=== PATIENT | male | born 1980 | race Caucasian/White ===

== ENCOUNTER 2017-05-02 10:35 | Outpatient (CLI) | payer BC ==
--- NOTE | 2017-05-02 14:14 | XRAY Report ---
DATE OF SERVICE: 05/02/2017 TWO VIEW CHEST: 05/02/2017 CLINICAL INDICATION: Cough. FINDINGS: Frontal and lateral views of the chest demonstrate a normal cardiac silhouette. The lungs are clear. No effusion or pneumothorax is present. IMPRESSION: NORMAL CHEST. NO SIGNIFICANT INTERVAL CHANGE FROM 07/23/2013. TD: 05/02/2017 15:12
== END 2017-05-02 10:36 | disposition home or self-care (01) ==
LOC: DI 10:35
PROVIDERS: ATTEND Internal Medicine
DX: R05 Cough (principal)
CPT/HCPCS: 71046

== ENCOUNTER 2017-09-02 12:07 | Outpatient (CLI) | payer BC | END 2017-09-02 12:08 | disposition critical access hospital (66) | LOC: EMS 12:07 | PROVIDERS: ATTEND Surgery | DX: R07.9 Chest pain, unspecified (principal) | CPT/HCPCS: A0425; A0429 ==

== ENCOUNTER 2017-09-02 12:26 | Emergency (ER) | payer BC ==
--- NOTE | 2017-09-02 12:33 | ED Physician Documentation ---
History of Present Illness - Stated complaint Stated Complaint: CP - Additonal information Additional information: hx from pt 37 male HTN and HLD string fhx CAD in males non smoker no DM had echo and stress test in 2011 at [facility] reportedly normal to ED from PMD with several days of waxing and waning chest pressure comes and goes last about 1 hr at a time pressure to ant chest no radiation no soa diaphoresis nausea no ppt or relieving factors no fever cough no travel no leg swelling no pain upon arrival took asa [employer] Review of Systems Constitutional: denies: Fever, Chills, Sweats Cardiac: reports: Chest pain / pressure Respiratory: denies: Dyspnea, Cough GI: denies: Abdominal Pain, Nausea, Vomiting Musculoskeletal: denies: Back pain, Extremity swelling Neurologic: denies: Generalized weakness Endocrine: denies: Easy bruising / bleeding Immunocompromised: denies: Immunocompromised PD PAST MEDICAL HISTORY - Past Medical History Cardiovascular: Hypertension, High cholesterol - Past Surgical History Past Surgical History: Yes - Present Medications Home Medications: Ambulatory Orders Medication Instructions Recorded Confirmed Ezetimibe [Zetia] 10 mg PO QD 07/23/13 07/23/13 Metoprolol Succinate 09/02/17 Umeclidinium [place] [Incruse 09/02/17 Ellipta] - Allergies Allergies/Adverse Reactions: Allergies Allergy/AdvReac Type Severity Reaction Status Date / Time No Known Drug Allergies Allergy Verified 09/02/17 12:37 - Social History Does the pt smoke?: No Smoking Status: Never smoker Does the pt drink ETOH?: Yes Does the pt have substance abuse?: No - POLST Patient has POLST: No PD ED PE NORMAL - Vitals Vital signs reviewed: Yes - General General: Alert and oriented X 3 - HEENT HEENT: PERRL - Neck Neck: Supple, no meningeal sign - Cardiac Cardiac: RRR - Respiratory Respiratory: No respiratory distress, Clear bilaterally - Abdomen Abdomen: Soft, Non tender - Derm Derm: Normal color - Extremities Extremities: No deformity, No edema, No calf tenderness / cord - Neuro Neuro: Alert and oriented X 3 Results - Vitals Vitals: Vital Signs - 24 hr 09/02/17 09/02/17 09/02/17 12:30 12:44 13:49 Temperature 36.6 C Heart Rate 74 64 Respiratory 18 18 Rate Blood Pressure 136/72 H 117/66 Blood Pressure 118/76 [Left] Blood Pressure 122/74 [Right] O2 Saturation 98 99 09/02/17 09/02/17 15:20 17:16 Temperature Heart Rate 69 80 Respiratory 17 22 Rate Blood Pressure 114/74 136/79 H Blood Pressure [Left] Blood Pressure [Right] O2 Saturation 98 95 Oxygen O2 Source Room air - EKG (time done) 1233 Rate: Rate (enter#) (72) Rhythm: NSR Mcallen: Normal Intervals: Normal AL Ischemia: Q waves (prom in III small inAVF), Other (slight ST e;ev V2 V3 most suggestive of repol) - Labs Labs: Laboratory Tests 09/02/17 09/02/17 09/02/17 12:43 12:43 12:43 WBC 7.2 RBC 5.61 Hgb 14.9 Hct 44.0 MCV 78.5 L MCH 26.6 L MCHC 33.8 RDW 13.7 Plt Count 194 MPV 8.5 Neut # 4.4 Lymph # 2.1 Preston # 0.6 Eos # 0.1 Baso # 0.0 Absolute Nucleated RBC 0.00 Nucleated RBC % 0.1 Sodium 138 Potassium 4.1 Chloride 107 Carbon Dioxide 25 Anion Gap 6.0 BUN 16 Creatinine 1.0 Estimated GFR (MDRD) 84 L Glucose 107 H Calcium 9.2 Total Bilirubin 0.7 AST 27 ALT 39 Alkaline Phosphatase 55 Troponin I < 0.04 Total Protein 7.1 Albumin 4.1 Globulin 3.0 Albumin/Globulin Ratio 1.4 Lipase 25 09/02/17 14:13 WBC RBC Hgb Hct MCV MCH MCHC RDW Plt Count MPV Neut # Lymph # Preston # Eos # Baso # Absolute Nucleated RBC Nucleated RBC % Sodium Potassium Chloride Carbon Dioxide Anion Gap BUN Creatinine Estimated GFR (MDRD) Glucose Calcium Total Bilirubin AST ALT Alkaline Phosphatase Troponin I < 0.04 Total Protein Albumin Globulin Albumin/Globulin Ratio Lipase - Rads (name of study) CXR Radiology: See rad report (neg) PD MEDICAL DECISION MAKING - ED course ED course: 37 male many risk factors abn but likely not acute EKG trop neg PERc neg no pna pneumo enlarged aorta etc [facility] so cannot admit but trop neg after several days of waxing waning sx so doubt serial trops will be diff spoke to hospitalist who will do stress test for pt in an hr if + transfer if neg dc stress test was neg - will dc Departure - Departure Disposition: 01 Home, Self Care Clinical Impression: Chest pain Qualifiers: Chest pain type: unspecified Qualified Code(s): R07.9 - Chest pain, unspecified Condition: Good Instructions: ED Chest Pain Atypical Unkn Cause Follow-Up: Patel Torres MD [Primary Care Provider] - Comments: All your tests were fine. The EKG and blood tests and the stress test indicate this is not a new heart attack or angina Your history and exam do not suggest a blood clot in your lungs The xray did not show fluid around your heart or lungs, an aneurysm or tear of your aorta or any infection. So I am not sure why you have been having chest pains but given the extensive and reassuring work up in the ER, I think it is safe for you to go home. May take motrin and tylenol as needed for the pain. Please follow up with your PMD for a recheck on Tuesday
[2017-09-02 12:50] LABS: BASOPHILS % (AUTO) 0.7 %; EOSINOPHILS # (AUTO) 0.1 10^3/uL (0.0-0.7); EOSINOPHILS % (AUTO) 1.7 %; HGB - HEMOGLOBIN 14.9 g/dL (14.0-18.0); LYMPHOCYTES # (AUTO) 2.1 10^3/uL (1.5-3.5); LYMPHOCYTES % (AUTO) 28.7 %; MEAN CORPUSCULAR HEMOGLOBIN 26.6 pg (27.0-31.0); MEAN CORPUSCULAR HGB CONC 33.8 g/dL (32.0-36.0); MEAN CORPUSCULAR VOLUME 78.5 fL (80.0-94.0); MEAN PLATELET VOLUME 8.5 fL (7.4-11.4); MONOCYTES # (AUTO) 0.6 10^3/uL (0.0-1.0); MONOCYTES % (AUTO) 8.7 %; NEUTROPHILS # (AUTO) 4.4 10^3/uL (1.5-6.6); NEUTROPHILS % (AUTO) 60.2 %; PLT - PLATELET COUNT 194 10^3/uL (130-450); RED BLOOD COUNT 5.61 10^6/uL (4.70-6.10); RED CELL DISTRIBUTION WIDTH 13.7 % (12.0-15.0); WHITE BLOOD COUNT 7.2 x10^3/uL (4.8-10.8)
[2017-09-02 13:03] LABS: ALBUMIN 4.1 g/dL (3.2-5.5); ALBUMIN/GLOBULIN RATIO 1.4 (1.0-2.2); BILIRUBIN,TOTAL 0.7 mg/dL (0.2-1.0); CALCIUM 9.2 mg/dL (8.5-10.3); TOTAL PROTEIN 7.1 g/dL (6.7-8.2)
--- NOTE | 2017-09-02 13:38 | XRAY Preliminary Report ---
Exam: XR CHEST 2 VIEW X-RAY IMPRESSION: Normal 2-view chest radiography. [facility] SITE ID: [id number]
--- NOTE | 2017-09-02 13:43 | XRAY Report ---
EXAM: CHEST RADIOGRAPHY EXAM DATE: 09/02/2017 01:32 PM. CLINICAL HISTORY: Chest pain for 3 days. COMPARISON: 05/02/2017. TECHNIQUE: 2 views. FINDINGS: Lungs/Pleura: No focal opacities evident. No pleural effusion. No pneumothorax. Normal volumes. Mediastinum: Heart and mediastinal contours are unremarkable. Other: None. IMPRESSION: Normal 2-view chest radiography. [facility] Referring Provider Line: [phone] SITE ID: [id number]
[2017-09-02] MEDS ORDERED: REGADENOSON 0.4 MG/5 ML SYRINGE IVP ONE (15:40)
--- NOTE | 2017-09-02 18:21 | CARDIAC PROCEDURE NOTE ---
DATE OF SERVICE: 09/02/2017 Physician: Ronda Lowry MD LOCATION: Emergency room. This is a 37-year-old white male who presents to the emergency room with symptoms of chest pain. He has had 2 negative troponins done in the emergency room, EKG has been unremarkable, and he presents for pharmaceutical stress test. CORONARY RISK FACTORS: Hypertension, hyperlipidemia, overweight, family history of early heart disease. RESTING EKG: Normal sinus rhythm. Deep Q-wave is present in lead 3 and a small Q-wave in aVF, otherwise within normal limits. The patient underwent Lexiscan stress testing after signing informed consent. The patient's resting heart rate was 81, which increased to 109 at peak. Resting blood pressure 118/82, which increased to 170/80 at peak, in recovery 128/72. The patient did experience flushing and his typical chest pressure was reproduced, rated a 1/10. This resolved in under 1 minute spontaneously. EKG at peak showed no ischemic ST segment changes or T-wave changes. IMPRESSION: Unremarkable EKG during pharmaceutical stress testing. Nuclear images reported separately. TD: 09/02/2017 18:20
--- NOTE | 2017-09-02 18:56 | Nuclear Medicine Report ---
EXAM: SINGLE-ISOTOPE PHARMACOLOGICAL STRESS TEST WITH REGADENOSON. SINGLE-ISOTOPE AND ONE-DAY REST/STRESS M YOCARDIAL PERFUSION SCANS WITH TOMOGRAPHIC IMAGING, QUANTITATIVE ANALYSIS, WALL MOTION ANALYSIS AND C ALCULATION OF EJECTION FRACTION. EXAM DATE: 09/02/2017 06:06 PM. CLINICAL HISTORY: Chest pain. COMPARISON: None. TECHNIQUE: After the intravenous administration of 44.6 mCi of Tc-99m sestamibi, a rest myocardial perfusion sca n was done with tomography. Motion correction was applied when appropriate. After an appropriate delay, pharmacological stress was performed with the infusion of 0.4 mg regadeno son per protocol. According to protocol, 9.2 mCi of Tc-99m sestamibi was injected for stress myocardi al perfusion scan. Motion correction was applied when appropriate. Gated tomographic images were obtained for wall motion analysis and computation of left ventricular e jection fraction. FINDINGS: Stress perfusion images demonstrate normal radiotracer distribution without fixed or revers ible ischemia. No convincing evidence of transient ischemic dilatation. Wall motion analysis demonstrates normal wall motion without functional abnormality. The left ventricular end-diastolic volume is 148 cc. The left ventricular end-systolic volume is 50 c c. The left ventricular ejection fraction is calculated to be 66%. IMPRESSION: 1. No scintigraphic findings to indicate myocardial ischemia. Negative for infarct. 2. Left ventricular ejection fraction of 66%. 3. Normal segmental and global wall motion. 4. Normal left ventricular cavity size, no change with stress. [facility] The call report notification system was initiated by Dr. Daniela Shah at 18:41 hrs on 09/02/17. The above findings were discussed with Ronda Lowry by Dr. Daniela Shah at 18:44 hrs on 09/02/17 . Referring Provider Line: [phone] SITE ID: [id number]
[2017-09-02 19:15] VITALS: BP 124/78
== END 2017-09-02 19:15 | disposition home or self-care (01) ==
LOC: EDUNIT# → ED 12:26
DX: R07.9 Chest pain, unspecified (principal); I10 Essential (primary) hypertension; E78.00 Pure hypercholesterolemia, unspecified; Z82.49 Family history of ischemic heart disease and other diseases of the circulatory system
CPT/HCPCS: 36415; 71046; 78452; 80053; 83690; 84484; 85025; 93005; 93017; 99284; A9500; J2785

== ENCOUNTER 2018-10-15 23:39 | Emergency (ER) | payer BC ==
--- NOTE | 2018-10-16 00:44 | ED Physician Documentation ---
PD HPI ABD PAIN - Stated complaint Stated Complaint: ABD PX - Chief complaint Chief Complaint: Abd Pain - History obtained from History obtained from: Patient, Family - History of Present Illness Timing - onset: Today Timing - duration: Hours Timing - details: Abrupt onset, Now resolved Quality: Cramping, Sharp, Pain Location: RUQ, RLQ Radiation: , Right flank Improved by: Other (time) Worsened by: Other (nothing) Associated symptoms: No: Fever, Nausea, Vomiting, Diarrhea, Constipation, Dysuria, Hematuria, Chest pain, Dizzy Similar symptoms before: Has not had sx before Recently seen: Not recently seen - Additional information Additional information: Previously well 38-year-old male has developed pain in the right upper quadrant that has radiated into his groin and has resolved and recurred this evening. He is come to the emergency department after the second recurrence with severe pain and shortly after having his IV started his pain resolved. He is currently pain-free. Review of Systems Constitutional: denies: Fever Throat: denies: Sore throat Respiratory: denies: Dyspnea GI: reports: Abdominal Pain. denies: Nausea, Vomiting, Constipation, Diarrhea : denies: Dysuria, Frequency PD PAST MEDICAL HISTORY - Past Medical History Cardiovascular: Hypertension, High cholesterol - Past Surgical History Past Surgical History: Yes - Present Medications Home Medications: Ambulatory Orders Medication Instructions Recorded Confirmed Ezetimibe [Zetia] 10 mg PO QD 07/23/13 07/23/13 Metoprolol Succinate PO BID 09/02/17 - Allergies Allergies/Adverse Reactions: Allergies Allergy/AdvReac Type Severity Reaction Status Date / Time No Known Drug Allergies Allergy Verified 09/02/17 12:37 - Social History Does the pt smoke?: No Smoking Status: Never smoker Does the pt drink ETOH?: Yes ETOH Use: Beer Does the pt have substance abuse?: No - Immunizations Immunizations are current?: Yes - POLST Patient has POLST: No PD ED PE NORMAL - Vitals Vital signs reviewed: Yes (hypertensive ) - General General: Alert and oriented X 3, No acute distress, Well developed/nourished - HEENT HEENT: Atraumatic, PERRL, EOMI - Neck Neck: Supple, no meningeal sign, No bony TTP - Cardiac Cardiac: RRR, No murmur - Respiratory Respiratory: No respiratory distress - Abdomen Abdomen: Normal bowel sounds, Soft, Non tender, Non distended, No organomegaly - Back Back: No CVA TTP, No spinal TTP - Derm Derm: Normal color, Warm and dry, No rash - Extremities Extremities: No deformity, No edema, No calf tenderness / cord - Neuro Neuro: Alert and oriented X 3, 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, No motor deficit, No sensory deficit, Normal speech Eye Opening: Spontaneous Motor: Obeys Commands Verbal: Oriented GCS Score: 15 - Psych Psych: Normal mood, Normal affect Results - Vitals Vitals: Vital Signs - 24 hr 10/15/18 23:43 Temperature 36.3 C L Heart Rate 73 Respiratory 18 Rate Blood Pressure 145/84 H O2 Saturation 99 Oxygen O2 Source Room air - Labs Labs: Laboratory Tests 10/16/18 01:05 Urine Color YELLOW Urine Clarity CLEAR Urine pH 6.0 Ur Specific [place] 1.020 Urine Protein NEGATIVE Urine Glucose (UA) NEGATIVE Urine Ketones NEGATIVE Urine Occult Blood NEGATIVE Urine Nitrite NEGATIVE Urine Bilirubin NEGATIVE Urine Urobilinogen 0.2 (NORMAL) Ur Leukocyte Esterase NEGATIVE Ur Microscopic Review NOT INDICATED Urine Culture Comments NOT INDICATED Procedures - Bedside sono Bedside sono by EMP: With the use of bedside ultrasound the right kidney is imaged. It is sonographically nontender and there is no evidence of hydronephrosis. The right upper quadrant is imaged the gallbladder is present it is sonographically nontender and there are no obvious stones gallbladder wall thickening or pericholecystic fluid. PD MEDICAL DECISION MAKING - ED course Complexity details: reviewed results, re-evaluated patient, considered differential, d/w patient, d/w family ED course: 38-year-old male with nonmodifiable right sided abdominal pain that was severe has no specific findings on physical exam today and he has no blood in his urine. His history and course are still consistent with a passed kidney stone. I have indicated the patient we will give him some instructions on this and asked him to return to the emergency department should he develop severe symptoms. Departure - Departure Disposition: 01 Home, Self Care Clinical Impression: Ureterolithiasis Condition: Stable Instructions: ED Stone Renal Passed Follow-Up: Patel Torres MD [Primary Care Provider] -
[2018-10-16 01:15] LABS: BILIRUBIN,URINE NEGATIVE (NEGATIVE); GLUCOSE, URINE (UA) NEGATIVE (NEGATIVE); KETONES,URINE (UA) NEGATIVE (NEGATIVE); LEUKOCYTE ESTERASE, URINE NEGATIVE (NEGATIVE); NITRITE,URINE NEGATIVE (NEGATIVE); OCCULT BLOOD,URINE NEGATIVE (NEGATIVE); PROTEIN,URINE NEGATIVE (NEGATIVE); UROBILINOGEN,URINE 0.2 (NORMAL) E.U./dL (NORMAL)
[2018-10-16 01:16] LABS: CLARITY,URINE CLEAR (CLEAR)
[2018-10-16 01:53] VITALS: BP 138/86
== END 2018-10-16 02:00 | disposition home or self-care (01) ==
LOC: ED 23:39
DX: N20.1 Calculus of ureter (principal); I10 Essential (primary) hypertension
CPT/HCPCS: 80053; 81001; 81003; 83690; 85025; 87086; 99283

== ENCOUNTER 2021-09-05 12:11 | Outpatient (CLI) | payer BC ==
--- NOTE | 2021-09-05 13:29 | XRAY Report ---
PROCEDURE: Knee 3 View BILAT INDICATIONS: Pain in both knees TECHNIQUE: 3Views of each knee are obtained.. COMPARISON: None. FINDINGS: Bones: No fractures or dislocations. No suspicious bony lesions. Mild bilateral tricompartmental p eriarticular osteophyte formation. Chronic appearing fragmentation of the tibial tubercles bilaterall y. Soft tissues: No joint effusion. No suspicious soft tissue calcifications. IMPRESSION: 1. Osteoarthritis. 2. 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 3. No acute fracture. No osseous lesion. If symptoms and/or clinical suspicion for pathology continue , further assessment with repeat plain films, or advanced imaging (e.g., CT, MRI, or bone scan) is re commended for further assessment. Reviewed by: Darcy Novak MD on 09/05/2021 1:28 PM PDT Approved by: Darcy Novak MD on 09/05/2021 1:28 PM PDT Station ID: [id number]
== END 2021-09-05 12:12 | disposition home or self-care (01) ==
LOC: DI 12:11
PROVIDERS: ATTEND Internal Medicine
DX: M17.0 Bilateral primary osteoarthritis of knee (principal)

== ENCOUNTER 2023-08-25 11:57 | Emergency (ER) | payer BC, OTHER ==
[2023-08-25 12:34] LABS: BASOPHILS # (AUTO) 0.1 10^3/uL (0.0-0.1); BASOPHILS % (AUTO) 0.5 %; EOSINOPHILS # (AUTO) 0.2 10^3/uL (0.0-0.7); HCT - HEMATOCRIT 45.2 % (42.0-52.0); HGB - HEMOGLOBIN 14.2 g/dL (14.0-18.0); LYMPHOCYTES # (AUTO) 2.2 10^3/uL (1.5-3.5); LYMPHOCYTES % (AUTO) 18.7 %; MEAN CORPUSCULAR HEMOGLOBIN 24.8 pg (27.0-31.0); MEAN CORPUSCULAR HGB CONC 31.4 g/dL (32.0-36.0); MEAN CORPUSCULAR VOLUME 78.9 fL (80.0-94.0); MEAN PLATELET VOLUME 11.1 fL (7.4-11.4); MONOCYTES # (AUTO) 0.7 10^3/uL (0.0-1.0); MONOCYTES % (AUTO) 6.3 %; NEUTROPHILS # (AUTO) 8.4 10^3/uL (1.5-6.6); NEUTROPHILS % (AUTO) 72.2 %; PLT - PLATELET COUNT 236 10^3/uL (130-450); RED BLOOD COUNT 5.73 10^6/uL (4.70-6.10); RED CELL DISTRIBUTION WIDTH 13.2 % (12.0-15.0); WHITE BLOOD COUNT 11.6 x10^3/uL (4.8-10.8)
[2023-08-25] MEDS: SODIUM CHLORIDE 0.9% 1,000 ML IV STA (12:47)
[2023-08-25] MEDS ORDERED: iohexoL-300 100 ML VIAL ONE (12:49)
[2023-08-25 12:54] LABS: ALBUMIN 4.4 g/dL (3.2-5.5); ALBUMIN/GLOBULIN RATIO 1.5 (1.0-2.2); BILIRUBIN,TOTAL 0.3 mg/dL (0.2-1.0); CALCIUM 9.9 mg/dL (8.5-10.3); CREATININE 1.2 mg/dL (0.6-1.3); POTASSIUM 4.3 mmol/L (3.5-4.5); TOTAL PROTEIN 7.3 g/dL (6.4-8.9)
[2023-08-25 13:40] LABS: BILIRUBIN,URINE NEGATIVE (NEGATIVE); CLARITY,URINE CLEAR (CLEAR); GLUCOSE, URINE (UA) NEGATIVE (NEGATIVE); KETONES,URINE (UA) NEGATIVE (NEGATIVE); LEUKOCYTE ESTERASE, URINE NEGATIVE (NEGATIVE); NITRITE,URINE NEGATIVE (NEGATIVE); OCCULT BLOOD,URINE LARGE (NEGATIVE); PROTEIN,URINE NEGATIVE (NEGATIVE); UROBILINOGEN,URINE 0.2 (NORMAL) E.U./dL (NORMAL)
[2023-08-25] MEDS: iohexoL-300 100 ML VIAL IVP ONE (13:48)
[2023-08-25] MEDS: ACETAMINOPHEN 325 MG TABLET PO STA (13:58)
[2023-08-25 14:00] LABS: BACTERIA,URINE Rare /HPF (None Seen); SQUAMOUS EPITHELIAL CELL,UR RARE Squamous (<= Few); WBC,URINE 0-3 /HPF (0-3)
--- NOTE | 2023-08-25 14:10 | ED Physician Documentation ---
PD HPI ABD PAIN - Stated complaint Stated Complaint: LFT ABD PX - Chief complaint Chief Complaint: Abd Pain - History obtained from History obtained from: Patient - Additional information Additional information: Patient is a 43-year-old with insulin-dependent diabetes presenting for left lower quadrant abdominal pain. He denies nausea or vomiting. Symptoms started this morning around 10:00. He felt a little pain overnight. No flank pain. No fever. No dysuria or hematuria.Denies previously diagnosed kidney stones or diverticulitis. Review of Systems Constitutional: denies: Fever Cardiac: denies: Chest pain / pressure Respiratory: denies: Dyspnea GI: reports: Abdominal Pain. denies: Vomiting, Diarrhea : denies: Dysuria PD PAST MEDICAL HISTORY - Past Medical History Past Medical History: Yes Cardiovascular: Hypertension, High cholesterol Endocrine/Autoimmune: Type 2 diabetes Psych: Depression - Past Surgical History Past Surgical History: Yes - Present Medications Home Medications: Ambulatory Orders Medication Instructions Recorded Confirmed Metoprolol Succinate 25 tab PO BID 09/02/17 08/25/23 Sertraline HCl 100 mg PO DAILY 09/16/21 08/25/23 hydroCHLOROthiazide [Hydrodiuril] 12.5 mg PO DAILY 09/16/21 08/25/23 Insulin Glargine [Lantus Solostar] 100 units SUBQ DAILY 08/25/23 08/25/23 Losartan Potassium 25 mg PO DAILY 08/25/23 08/25/23 Metformin HCl [Metformin ER 1,000 mg PO DAILY 08/25/23 08/25/23 Gastric] Ondansetron Odt [Zofran] 4 mg TL Q6H PRN #10 tablet 08/25/23 Oxycodone HCl/Acetaminophen 1 each PO Q6H PRN #14 tablet 08/25/23 [Percocet 5-325 mg Tablet] Rosuvastatin Calcium [Crestor] 40 mg PO DAILY 08/25/23 08/25/23 Tamsulosin [Flomax] 0.4 mg PO DAILY #14 cap 08/25/23 - Allergies Allergies/Adverse Reactions: Allergies Allergy/AdvReac Type Severity Reaction Status Date / Time No Known Drug Allergies Allergy Verified 08/25/23 12:09 - Social History Does the pt smoke?: No Smoking Status: Never smoker Does the pt drink ETOH?: Yes Does the pt have substance abuse?: No - Immunizations Immunizations are current?: Yes - POLST Patient has POLST: No PD ED PE NORMAL - General General: Alert and oriented X 3, No acute distress, Well developed/nourished - HEENT HEENT: Atraumatic, Moist mucous membranes - Neck Neck: Supple, no meningeal sign - Cardiac Cardiac: RRR, Strong equal pulses - Respiratory Respiratory: No respiratory distress, Clear bilaterally - Abdomen Abdomen: Normal bowel sounds, Soft, Non distended, Other (mild LLQ Tenderness; No rebound, no guarding, no palpable mass) - Derm Derm: Warm and dry - Neuro Neuro: Normal speech Results - Vitals Vitals: Vital Signs - 24 hr 08/25/23 08/25/23 08/25/23 12:04 12:44 14:02 Temperature 36.4 C L 36.4 C L Heart Rate 77 71 65 Respiratory 20 20 20 Rate Blood Pressure 167/81 H 142/77 H 145/76 H O2 Saturation 97 95 99 08/25/23 15:03 Temperature 36.2 C L Heart Rate 69 Respiratory 18 Rate Blood Pressure 158/77 H O2 Saturation 96 Oxygen O2 Source Room air - Labs Labs: Laboratory Tests 08/25/23 08/25/23 08/25/23 12:26 12:26 13:30 WBC 11.6 H RBC 5.73 Hgb 14.2 Hct 45.2 MCV 78.9 L MCH 24.8 L MCHC 31.4 L RDW 13.2 Plt Count 236 MPV 11.1 Neut # (Auto) 8.4 H Lymph # (Auto) 2.2 [place] # (Auto) 0.7 Eos # (Auto) 0.2 Baso # (Auto) 0.1 Absolute Nucleated RBC 0.00 Nucleated RBC % 0.0 Sodium 138 Potassium 4.3 Chloride 103 Carbon Dioxide 27 Anion Gap 8.0 BUN 19 Creatinine 1.2 Estimated GFR (MDRD) 66 L Glucose 141 H Calcium 9.9 Total Bilirubin 0.3 AST 18 ALT 27 Alkaline Phosphatase 80 Total Protein 7.3 Albumin 4.4 Globulin 2.9 Albumin/Globulin Ratio 1.5 Lipase 34 Urine Color DARK YELLOW Urine Clarity CLEAR Urine pH 6.0 Ur Specific [place] >=1.030 H Urine Protein NEGATIVE Urine Glucose (UA) NEGATIVE Urine Ketones NEGATIVE Urine Occult Blood LARGE H Urine Nitrite NEGATIVE Urine Bilirubin NEGATIVE Urine Urobilinogen 0.2 (NORMAL) Ur Leukocyte Esterase NEGATIVE Urine RBC 6-10 H Urine WBC 0-3 Ur Squamous Epith Cells RARE Squamous Urine Bacteria Rare Ur Microscopic Review INDICATED Urine Culture Comments NOT INDICATED PD Medical Decision Making - ED course Complexity details: reviewed results, re-evaluated patient, d/w patient ED course: Patient is a 43-year-old male with left-sided abdominal pain. Mild tenderness noted on exam. He is an insulin-dependent diabetic. CBC and chemistries were reviewed. Mild leukocytosis of 11.7. Urinalysis is positive for blood. CT scan of the abdomen pelvis was obtained which demonstrates a proximal left ureter stone. Patient's pain is well-controlled here and he actually declines any pain medication other than some p.o. acetaminophen. Patient counseled reg arding his evaluation as well as diagnosis. He is advised on treatment plan and need for follow-up. Counseled on concerning symptoms to return for. Departure - Departure Disposition: Home, Self Care Clinical Impression: Left ureteral stone Condition: Stable Instructions: ED Stone Renal W Colic Follow-Up: Meet Velazquez MD [Provider Admit Priv/Credential] - Prescriptions: Tamsulosin [Flomax] 0.4 mg PO DAILY #14 cap Oxycodone HCl/Acetaminophen [Percocet 5-325 mg Tablet] 1 each PO Q6H PRN #14 tablet PRN Reason: pain Ondansetron Odt [Zofran] 4 mg TL Q6H PRN #10 tablet PRN Reason: Nausea / Vomiting Comments: You have a kidney stone coming out of the left kidney measuring 4 x 2 mm. I sent prescriptions to the [facility] pharmacy to help you with pain and nausea. I would recommend close follow-up with a urologist and have listed the name of 1 locally. Return to the ER if you develop any worsening Such as fever or uncontrolled pain. I am prescribing a short course of narcotic pain medication for you. These are potentially dangerous and addictive medications that should be used carefully. These medications may constipate you. Take an [id number] stool softener (docusate) twice daily with plenty of water while taking these medications. If you go 24 hours without a bowel movement, take [id number] miralax, per package instructions. Do not drink or drive while taking these medications. If you received narcotic or sedating medications while in the emergency department, do not drive for 24 hours. Store this medication in a safe, secure place and out of reach of children. It is a violation of federal law to give or sell this medication to another person or to use in a manner other than prescribed. The ED will not refill narcotic prescriptions, including prescriptions lost or stolen. To dispose of unwanted medications: 1. [facility] [address] in [place] has a medication drop box. They accept prescription medications (in pill form) Tuesday through Tuesday 9:00 a.m. to 5:00 p.m. 2. The [facility] accepts prescription medications (in pill form only) for disposal year round. Call for more information. 3. Contact the [facility] for the next [facility] sponsored prescription drug collection event. , [phone], or [phone]; Note that many narcotic pain relievers also contain Tylenol/acetaminophen. Please ensure that your total dose of acetaminophen from all sources does not exceed 3 g (3000 mg) per day. Forms: PCP List Discharge Date/Time: 08/25/23 15:05
--- NOTE | 2023-08-25 14:31 | CT Report ---
PROCEDURE: Abdomen/Pelvis W INDICATIONS: L sided pain CONTRAST: 100ml [id number] TECHNIQUE: After the administration of intravenous contrast, a CT scan of the abdomen and pelvis was performed. Images were recorded and evaluated at appropriate window settings. Reformats: coronal and sagittal. F or radiation dose reduction, the following was used: automated exposure control, adjustment of mA and /or kV according to patient size. COMPARISON: None. FINDINGS: Image quality: Diagnostic. Lower chest: Unremarkable. Liver: No solid mass. Gallbladder and biliary tree: No radiopaque stones or wall thickening. No biliary dilation. Spleen: No splenomegaly. Pancreas: No pancreatic ductal dilation. Adrenals: No adrenal nodule. Kidneys and ureters: Left renal collecting system is duplicated. There is mild hydronephrosis at the superior pole moiety. There is an obstructing stone in the proximal left ureter measuring 0.2 cm in d iameter, (). This measures 0.4 cm in length. Benign cyst at the superior pole the left kidney measuring 2.2 cm. No renal cystic lesion which requi res follow up. No solid mass. Stomach, bowel and peritoneum: No bowel distension. No pathologic free fluid. Normal appendix. Lymph nodes: No central or retroperitoneal adenopathy. Vessels: No infrarenal aortic aneurysm. PELVIS Reproductive organs: Unremarkable. Bladder: No abnormal wall thickening, accounting for underdistention. No stone. Pelvic lymph nodes: No pelvic adenopathy by size criteria. Bones: No aggressive osseous abnormality. Other: No inguinal hernia. Tiny umbilical hernia. IMPRESSION: 1. Obstructing calculus in the proximal left ureter. Mild hydronephrosis. Left renal collecting syste m is duplicated. 2. No free fluid. No bowel obstruction. Normal appendix. Reviewed by: Bill Carpenter MD on 08/25/2023 2:29 PM PDT Approved by: Bill Carpenter MD on 08/25/2023 2:29 PM PDT Station ID: [id number]
[2023-08-25 15:08] VITALS: BP 158/77; O2SAT 96
== END 2023-08-25 15:05 | disposition home or self-care (01) ==
LOC: ED 11:57
DX: N13.2 Hydronephrosis with renal and ureteral calculous obstruction (principal)
CPT/HCPCS: 36415; 74177; 80053; 81001; 83690; 85025; 96360; 99284; A9270; Q9967; 81003; 87086

== ENCOUNTER 2023-08-30 18:11 | Emergency (ER) | payer OTHER ==
[2023-08-30 18:29] VITALS: BP 151/79; O2SAT 98
[2023-08-30 18:50] LABS: BASOPHILS # (AUTO) 0.1 10^3/uL (0.0-0.1); BASOPHILS % (AUTO) 0.5 %; EOSINOPHILS # (AUTO) 0.3 10^3/uL (0.0-0.7); EOSINOPHILS % (AUTO) 3.7 %; HCT - HEMATOCRIT 44.3 % (42.0-52.0); LYMPHOCYTES # (AUTO) 2.8 10^3/uL (1.5-3.5); LYMPHOCYTES % (AUTO) 30.6 %; MEAN CORPUSCULAR HEMOGLOBIN 24.9 pg (27.0-31.0); MEAN CORPUSCULAR HGB CONC 31.6 g/dL (32.0-36.0); MEAN CORPUSCULAR VOLUME 78.7 fL (80.0-94.0); MEAN PLATELET VOLUME 11.2 fL (7.4-11.4); MONOCYTES # (AUTO) 0.7 10^3/uL (0.0-1.0); MONOCYTES % (AUTO) 7.1 %; NEUTROPHILS # (AUTO) 5.3 10^3/uL (1.5-6.6); NEUTROPHILS % (AUTO) 57.9 %; PLT - PLATELET COUNT 216 10^3/uL (130-450); RED BLOOD COUNT 5.63 10^6/uL (4.70-6.10); RED CELL DISTRIBUTION WIDTH 13.3 % (12.0-15.0); WHITE BLOOD COUNT 9.1 x10^3/uL (4.8-10.8)
[2023-08-30 18:55] LABS: VBG HCO3 21.7 mmol/L (23-28); VBG OXYGEN SATURATION 81.3 % (60-80); VBG PH 7.375 (7.31-7.41); VBG PO2 47.5 mmHg (25-47); VBG TOTAL CO2 22.9 mmol/L (24-29)
[2023-08-30 18:57] LABS: BILIRUBIN,URINE NEGATIVE (NEGATIVE); CLARITY,URINE CLEAR (CLEAR); GLUCOSE, URINE (UA) 100 mg/dL (NEGATIVE); KETONES,URINE (UA) NEGATIVE (NEGATIVE); LEUKOCYTE ESTERASE, URINE NEGATIVE (NEGATIVE); NITRITE,URINE NEGATIVE (NEGATIVE); OCCULT BLOOD,URINE TRACE-INTA (NEGATIVE); PH,URINE 5.5 PH (5.0-7.5); PROTEIN,URINE NEGATIVE (NEGATIVE); UROBILINOGEN,URINE 0.2 (NORMAL) E.U./dL (NORMAL)
[2023-08-30 19:24] LABS: ALBUMIN 4.4 g/dL (3.2-5.5); ALBUMIN/GLOBULIN RATIO 1.9 (1.0-2.2); ALKALINE PHOSPHATASE 77 IU/L (42-121); ALT ALANINE AMINOTRANSFERASE 25 IU/L (10-60); AST ASPARTATE AMINOTRANSFERASE 15 IU/L (10-42); BILIRUBIN,TOTAL 0.3 mg/dL (0.2-1.0); BUN - BLOOD UREA NITROGEN 18 mg/dL (6-20); CALCIUM 9.8 mg/dL (8.5-10.3); CARBON DIOXIDE - CO2 28 mmol/L (21-32); CHLORIDE 102 mmol/L (101-111); CREATININE 0.9 mg/dL (0.6-1.3); GFR - MDRD 92 (>89); GLUCOSE 256 mg/dL (74-104); LIPASE 27 U/L (11-82); POTASSIUM 3.7 mmol/L (3.5-4.5); SODIUM 138 mmol/L (135-145); TOTAL PROTEIN 6.7 g/dL (6.4-8.9)
--- NOTE | 2023-08-30 19:25 | ED Physician Documentation ---
History of Present Illness - Stated complaint Stated Complaint: HIGH BLOOD SUGAR - Chief complaint Chief Complaint: General - History obtained from History obtained from: Patient, Family - History of Present Illness Timing: Today Pain level max: 0 Pain level now: 0 - Additonal information Additional information: 43-year-old male with a history of diabetes presents to the emergency department stating his blood sugar was 300 at home. He is otherwise asymptomatic. No abdominal pain, nausea, vomiting, diarrhea. No fevers. No chills. No cough. No congestion. No changes to his medications. He states he takes 18 units of insulin a day, does not know what type. Review of Systems Constitutional: denies: Fever, Chills Ears: denies: Ear pain Nose: denies: Rhinorrhea / runny nose, Congestion Cardiac: denies: Chest pain / pressure Respiratory: denies: Cough GI: denies: Abdominal Pain, Nausea, Vomiting, Diarrhea : denies: Dysuria, Frequency, Hesitancy Skin: denies: Rash Musculoskeletal: denies: Neck pain, Back pain Neurologic: denies: Headache PD PAST MEDICAL HISTORY - Past Medical History Past Medical History: Yes Cardiovascular: Hypertension, High cholesterol Respiratory: None Neuro: None Endocrine/Autoimmune: Type 2 diabetes GI: None : Benign prostate hypertrophy HEENT: None Psych: Depression Musculoskeletal: None Derm: None - Past Surgical History Past Surgical History: Yes - Present Medications Home Medications: Ambulatory Orders Medication Instructions Recorded Confirmed Metoprolol Succinate 25 tab PO BID 09/02/17 08/30/23 Sertraline HCl 100 mg PO DAILY 09/16/21 08/30/23 hydroCHLOROthiazide [Hydrodiuril] 12.5 mg PO DAILY 09/16/21 08/30/23 Insulin Glargine [Lantus Solostar] 18 units SUBQ DAILY 08/25/23 08/30/23 Losartan Potassium 25 mg PO DAILY 08/25/23 08/30/23 Metformin HCl [Metformin ER 1,000 mg PO DAILY 08/25/23 08/30/23 Gastric] Rosuvastatin Calcium [Crestor] 40 mg PO DAILY 08/25/23 08/30/23 - Allergies Allergies/Adverse Reactions: Allergies Allergy/AdvReac Type Severity Reaction Status Date / Time No Known Drug Allergies Allergy Verified 08/30/23 18:22 - Social History Does the pt smoke?: No Smoking Status: Never smoker Does the pt drink ETOH?: Yes Does the pt have substance abuse?: No - Immunizations Immunizations are current?: Yes - POLST Patient has POLST: No PD ED PE NORMAL - Vitals Vital signs reviewed: Yes - General General: Alert and oriented X 3, No acute distress - HEENT HEENT: Moist mucous membranes - Neck Neck: Supple, no meningeal sign - Cardiac Cardiac: RRR, Strong equal pulses - Respiratory Respiratory: No respiratory distress, Clear bilaterally - Abdomen Abdomen: Soft, Non tender, Non distended - Derm Derm: Warm and dry - Extremities Extremities: No edema - Neuro Neuro: Alert and oriented X 3 - Psych Psych: Normal mood, Normal affect Results - Vitals Vitals: Vital Signs - 24 hr 08/30/23 08/30/23 18:16 19:55 Temperature 37.1 C Heart Rate 69 70 Respiratory 16 16 Rate Blood Pressure 151/79 H O2 Saturation 98 98 Oxygen O2 Source Room air - Labs Labs: Laboratory Tests 08/30/23 08/30/23 08/30/23 18:35 18:35 18:35 WBC 9.1 RBC 5.63 Hgb 14.0 Hct 44.3 MCV 78.7 L MCH 24.9 L MCHC 31.6 L RDW 13.3 Plt Count 216 MPV 11.2 Neut # (Auto) 5.3 Lymph # (Auto) 2.8 [place] # (Auto) 0.7 Eos # (Auto) 0.3 Baso # (Auto) 0.1 Absolute Nucleated RBC 0.00 Nucleated RBC % 0.0 VBG pH 7.375 VBG pCO2 38.0 L VBG pO2 47.5 H VBG HCO3 21.7 L VBG Total CO2 22.9 L VBG O2 Saturation 81.3 H VBG Base Excess -3.0 L Sodium 138 Potassium 3.7 Chloride 102 Carbon Dioxide 28 Anion Gap 8.0 BUN 18 Creatinine 0.9 Estimated GFR (MDRD) 92 Glucose 256 H Calcium 9.8 Total Bilirubin 0.3 AST 15 ALT 25 Alkaline Phosphatase 77 Total Protein 6.7 Albumin 4.4 Globulin 2.3 Albumin/Globulin Ratio 1.9 Lipase 27 Urine Color Urine Clarity Urine pH Ur Specific [place] Urine Protein Urine Glucose (UA) Urine Ketones Urine Occult Blood Urine Nitrite Urine Bilirubin Urine Urobilinogen Ur Leukocyte Esterase Ur Microscopic Review Urine Culture Comments Serum Ketones NEGATIVE 08/30/23 18:50 WBC RBC Hgb Hct MCV MCH MCHC RDW Plt Count MPV Neut # (Auto) Lymph # (Auto) [place] # (Auto) Eos # (Auto) Baso # (Auto) Absolute Nucleated RBC Nucleated RBC % VBG pH VBG pCO2 VBG pO2 VBG HCO3 VBG Total CO2 VBG O2 Saturation VBG Base Excess Sodium Potassium Chloride Carbon Dioxide Anion Gap BUN Creatinine Estimated GFR (MDRD) Glucose Calcium Total Bilirubin AST ALT Alkaline Phosphatase Total Protein Albumin Globulin Albumin/Globulin Ratio Lipase Urine Color YELLOW Urine Clarity CLEAR Urine pH 5.5 Ur Specific [place] >=1.030 H Urine Protein NEGATIVE Urine Glucose (UA) 100 H Urine Ketones NEGATIVE Urine Occult Blood TRACE-INTA Urine Nitrite NEGATIVE Urine Bilirubin NEGATIVE Urine Urobilinogen 0.2 (NORMAL) Ur Leukocyte Esterase NEGATIVE Ur Microscopic Review NOT INDICATED Urine Culture Comments NOT INDICATED Serum Ketones PD Medical Decision Making - ED course Complexity details: reviewed results, re-evaluated patient, considered differential, d/w patient, d/w family ED course: Patient is fully asymptomatic here. Patient is well-appearing, nontoxic. Afebrile. No recent illnesses. No significant laboratory abnormalities other than a mildly elevated blood glucose. No evidence of DKA or HHONKS. No vomiting. No abdominal pain. We will have the patient continue to monitor his blood sugar at home and follow-up with his doctor to see if he needs his insulin adjusted. Patient and family counseled regarding signs and symptoms for which I believe and urgent re-evaluation would be necessary. Patient with good understanding of and agreement to plan and is comfortable going home at this time This document was made in part using voice recognition software. While efforts are made to proofread this document, sound alike and grammatical errors may occur. Departure - Departure Disposition: 01 Home, Self Care Clinical Impression: Hyperglycemia due to diabetes mellitus Condition: Good Instructions: ED Hyperglycemia Diabetic Follow-Up: your,doctor in 1 week [Other] Comments: Your blood sugar is down to 250. There is no evidence of DKA. Please return if you develop vomiting, fevers, sustained blood sugars over 4-500 or "too high to read" on your monitor. Please follow-up with your doctor for further care. Forms: PCP List Discharge Date/Time: 08/30/23 19:55
[2023-08-30 19:32] LABS: KETONES, SERUM (ACETEST) NEGATIVE (NEGATIVE)
== END 2023-08-30 19:55 | disposition home or self-care (01) ==
LOC: ED 18:11
DX: E11.65 Type 2 diabetes mellitus with hyperglycemia (principal); Z79.4 Long term (current) use of insulin; Z79.84 Long term (current) use of oral hypoglycemic drugs; I10 Essential (primary) hypertension; E78.00 Pure hypercholesterolemia, unspecified; F32.A Depression, unspecified; N40.0 Benign prostatic hyperplasia without lower urinary tract symptoms
CPT/HCPCS: 36415; 80053; 81001; 81003; 82009; 82803; 83690; 85025; 87086; 99283

== ENCOUNTER 2023-10-07 07:00 | Outpatient (CLI) | payer OTHER ==
--- NOTE | 2023-10-07 13:46 | MRI Report ---
PROCEDURE: Knee LT WO INDICATIONS: L KNEE PAIN TECHNIQUE: Noncontrast sagittal PD fast spin echo and T2 fast spin echo with fat saturation, sagittal 3-D spoile d GE with fat saturation; coronal T1 spin echo and PD fast spin echo with fat saturation, and axial P D fast spin echo with fat saturation through the knee. COMPARISON: Left knee radiographs 09/14/2023 FINDINGS: Image quality: Excellent. Anterior cruciate ligament: Intact. Posterior cruciate ligament: Intact. Medial collateral ligament: Intact. Lateral collateral ligament: Intact. Medial meniscus: Horizontal oblique tearing of the posterior horn of the medial meniscus extending t o the middle third of the tibial articular surface. Lateral meniscus: Intact. Medial and lateral tendons: The semimembranosus tendon insertions appear intact. Visualized portion s of the pes anserinus tendons appear normal. The popliteus tendon appears intact. Iliotibial band appears normal. Anterior structures: Mild patellar tendinosis. Small distal quadriceps enthesophyte. 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 No patellar s ubluxation. No femoral trochlear dysplasia or ventral trochlear prominence. No edema in the infrapa tellar fat pad. Bones: No acute trabecular bone injury or fracture. Medial femorotibial cartilage: Full-thickness cartilage loss is seen at the anterior to central weig htbearing portion of the medial femoral condyle with mild subchondral edema and small marginal osteop hytes. Lateral femorotibial cartilage: No focal cartilage defect. Small marginal osteophytes. Patellofemoral cartilage: Full-thickness cartilage loss is seen at the median ridge of the patella w ith subchondral osteophyte formation. There is high-grade cartilage loss at the trochlear groove and adjacent portions of the medial and lateral femoral trochlea. Cartilage fissuring is seen at the medi al patellar facet. Soft tissues: There is a medium-sized joint effusion. There is a small medial popliteal cyst. The m usculature surrounding the knee is normal in bulk. IMPRESSION: 1.Horizontal oblique tearing of the posterior horn of the medial meniscus extending middle third of t he tibial articular surface. 2.Large area of full-thickness cartilage loss in the anterior to central weightbearing portion of the medial femoral condyle with subchondral edema. Areas of full-thickness cartilage loss are also seen in the patellofemoral compartment. Small tricompartmental marginal osteophytes. 3.Cruciate and collateral ligaments are intact. No acute trabecular bone injury. 4.Moderate joint effusion. Small medial popliteal cyst. Reviewed by: Matthew Rose MD on 10/07/2023 1:44 PM PDT Approved by: Matthew Rose MD on 10/07/2023 1:44 PM PDT Station ID: [id number]
== END 2023-10-07 07:01 | disposition home or self-care (01) ==
LOC: DI 07:00
PROVIDERS: ATTEND Registered Nurse
DX: S83.242A Other tear of medial meniscus, current injury, left knee, initial encounter (principal); M25.462 Effusion, left knee; M71.22 Synovial cyst of popliteal space [Baker], left knee; M24.112 Other articular cartilage disorders, left shoulder